=== PATIENT | male | born 1970 | race Asian ===

== ENCOUNTER 2019-05-18 21:02 | Emergency (ER) | payer BC ==
[~2019-05-18] VITALS: Ht 175.3 cm; Wt 87.1 kg
[2019-05-18 21:09] VITALS: BP_SYST 146
--- NOTE | 2019-05-18 21:35 | NUR ---
Patient to ER bed 6 to gown for evaluation. Side rails up
--- NOTE | 2019-05-18 21:35 | NUR ---
Patient complains of severe headache since this morning. Pt states he tried sleeping it off in the afternoon but has not worked. Per pt, pain is severe it makes him feel nauseous. Pt took Vitamin B and Vitamin C with no relief. NO other injuries/complaints per patient or noted.
--- NOTE | 2019-05-19 00:20 | NUR ---
ER Dr. Ang at bedside examining patient.
[2019-05-19] MEDS ORDERED: KETOROLAC TROMETHAMINE 30 MG VIAL IM ONE (00:30)
[2019-05-19] MEDS ORDERED: ONDANSETRON 4 MG ODT TAB PO ONE (00:30)
[2019-05-19] MEDS ORDERED: KETOROLAC TROMETHAMINE 30 MG VIAL IVP ONE (01:15)
[2019-05-19 01:21] LABS: HEMOGLOBIN 14.7 g/dL (14.0-18.0)
[2019-05-19 01:26] LABS: BASOPHILS % (AUTO) 0.4 % (0.0-2.0); HEMATOCRIT 42.2 % (36-54); LYMPHOCYTES # (AUTO) 0.4 K/uL (1.0-5.5); LYMPHOCYTES % (AUTO) 5.2 % (20.5-51.5); MEAN CORPUSCULAR HEMOGLOBIN 30 pg (27-31); MEAN CORPUSCULAR HGB CONC 35 % (32-36); MEAN CORPUSCULAR VOLUME 86 fL (79.0-98.0); MONOCYTES # (AUTO) 0.3 K/uL (0.0-1.0); MONOCYTES % (AUTO) 3.6 % (1.7-9.3); NEUTROPHILS # (AUTO) 7.8 K/uL (1.8-7.7); NEUTROPHILS % (AUTO) 90.8 % (40.0-70.0); PLATELET COUNT (AUTO) 229 K/uL (130-430); RED BLOOD CELL COUNT(AUTO) 4.91 MIL/uL (4.2-6.2); RED CELL DISTRIBUTION WIDTH 12.8 % (9.0-15.0); WHITE BLOOD COUNT (AUTO) 8.6 K/uL (4.8-10.8)
[2019-05-19 01:30] LABS: CALCIUM 9.8 mg/dL (8.4-11.0); CREATININE 1.11 mg/dL (0.55-1.30); POTASSIUM 3.4 mmol/L (3.5-5.1)
[2019-05-19 01:41] LABS: ALBUMIN 3.8 g/dL (3.4-4.8); TOTAL BILIRUBIN 1.4 mg/dL (0.0-1.0)
--- NOTE | 2019-05-19 01:55 | NUR ---
Pt resting comfortably in bed. No acute distress, will continue to monitor.
[2019-05-19 02:48] VITALS: BP_SYST 132
--- NOTE | 2019-05-19 02:48 | NUR ---
Patient given written and verbal discharge instructions and verbalizes understanding. ER MD discussed with patient the results and treatment provided. Patient in stable condition. ID arm band removed. IV catheter removed intact and dressing applied, no active bleeding. Rx of Zofran and Ibuprofen given. Patient educated on pain management and to follow up with PMD. Pain Scale 0. Opportunity for questions provided and answered. Medication side effect fact sheet provided.
== END 2019-05-19 02:48 | disposition home or self-care (01) ==
LOC: SED 21:02
DX: G44.209 Tension-type headache, unspecified, not intractable (principal)
CPT/HCPCS: 36415; 80053; 85025; 96374; 99283; J1885; Q0162